=== PATIENT | male | born 1995 | race Caucasian/White ===

== ENCOUNTER → 2025-03-18 | Outpatient (CLI) | payer BC, SELFPAY ==
--- NOTE | 2025-03-18 10:43 | XR_ITS ---
Examination: Shoulder,left, 3 views Technique: Shoulder AP internal rotation, AP external rotation, Y view shoulder, 3 views Exam date and time :March 18, 2025, 10:52 AM INDICATIONS: Left shoulder pain post injury 3 years ago. FINDINGS: No shoulder fracture or dislocation Moderate narrowing glenohumeral joint No AC joint separation IMPRESSION: Moderate narrowing glenohumeral joint
[2025-03-18 11:37] LABS: Basophils # (Auto) 0.2 Thou/mm3 (0.0-0.2); Basophils % (Auto) 2 % (0-2.5); Eosinophils # (Auto) 0.3 Thou/mm3 (0.0-0.5); Eosinophils % (Auto) 4 % (0-10); Hematocrit 45.5 % (41.0-53.0); Hemoglobin 14.5 g/dL (13.5-16.0); Immature Granulocytes Auto 0.03 Thou/mm3 (0.00-0.00); Lymphocytes # (Auto) 3.2 Thou/mm3 (1.0-4.8); Lymphocytes % (Auto) 34 % (10-50); Mean Corpuscular HGB Conc 31.9 g/dl (31.0-37.0); Mean Corpuscular Hemoglobin 26.7 pg (25.0-35.0); Mean Corpuscular Volume 84 fL (80-100); Monocytes # (Auto) 0.8 Thou/mm3 (0.0-0.8); Monocytes % (Auto) 8 % (0-12); Neutrophils # (Auto) 5.0 Thou/mm3 (1.8-7.7); Neutrophils % (Auto) 53 % (37-80); Nucleated Red Blood Cell # 0.00 Thou/mm3 (0.00-0.00); Nucleated Red Blood Cell % 0 /100 WBC (0); Platelet Count 305 Thou/mm3 (140-440); RDW Standard Deviation 39.3 fL (35.1-43.9); Red Blood Count 5.44 Miln/mm3 (4.50-5.90); White Blood Count 9.4 Thou/mm3 (3.8-10.6)
[2025-03-18 11:56] LABS: Alanine Aminotransferase 69 U/L (10-49); Albumin, Serum 4.9 gm/dL (3.5-5.0); Albumin/Globulin Ratio 2.1 (1.2-2.2); Alkaline Phosphatase 62 U/L (46-116); Anion Gap 9 (7-16); Aspartate Amino Transferase 32 U/L (0-34); BUN/Creatinine Ratio 8 Ratio (12-20); Bilirubin,Total 0.5 mg/dL (0.3-1.2); Blood Urea Nitrogen 7 mg/dL (9-23); Calcium 9.9 mg/dL (8.3-10.6); Calcium (Corrected) 9.9 mg/dL (8.5-10.1); Carbon Dioxide 27.8 mMol/L (20.0-31.0); Cardiac Risk Estimate 4.0 RATIO (4.0-6.7); Chloride 105 mMol/L (98-107); Cholesterol 218 mg/dL (132-200); Creatinine (Component) 0.9 mg/dL (0.6-1.3); Globulin 2.3 gm/dL (2.3-3.5); Glucose 102 mg/dL (74-106); HDL Cholesterol 54 mg/dL (40-60); LDL Cholesterol,Calculated 125 mg/dL (0-130); Osmolality,Calculated 281 (275-295); Potassium 4.5 mMol/L (3.4-5.1); Sodium 142 mMol/L (136-145); Thyroid Stimulating Hormone 1.28 uIU/mL (0.55-4.78); Total Protein 7.2 gm/dL (5.7-8.2); Triglycerides 195 mg/dL (30-150); eGFR > 60 See Note
[2025-03-18 12:03] LABS: Glucose Estimated Average 105 mg/dL (80-131); Hemoglobin A1C 5.3 % Hgb (4.8-6.0)
== END | disposition home or self-care (01) ==
PROVIDERS: PCP Family Medicine; Referring Provider Student in an Organized Health Care Education/Training Program; Visit Provider Radiology Diagnostic Radiology
DX: M25.812 Other specified joint disorders, left shoulder (principal); E66.01 Morbid (severe) obesity due to excess calories
CPT/HCPCS: 36415; 73030; 80053; 80061; 83036; 84443; 85025